=== PATIENT | female | born 1955 | race Caucasian/White ===

== ENCOUNTER → 2021-08-02 | Outpatient (CLI) | payer OTHER ==
[~2021-08-02] MED LIST: Advil200 M1 PO; Anastrozole1 GM PO; CALCAVITDA PO; CHOL10002 PO; GLUCOSAMINE-CH1 EA22 PO; LISI20 PO; LORA10 PO; LOVA40 PO; MAGCHL64ER PO; THYR60 PO
== END | disposition home or self-care (01) ==
LOC: LAB SHORT 16:18
DX: N39.0 Urinary tract infection, site not specified (principal)
CPT/HCPCS: 87077; 87086; 87186

== ENCOUNTER 2022-10-27 08:33 | Day surgery (SDC) | payer OTHER ==
[~2022-10-27] VITALS: Ht 147.3 cm; Wt 51.2 kg
== END 2022-10-27 10:50 | disposition home or self-care (01) ==
LOC: ORSCSDS 08:33
PROVIDERS: Surgery
PROC: 0DJD8ZZ Inspection of Lower Intestinal Tract, Via Natural or Artificial Opening Endoscopic (ICD-10-PCS; principal; 2022-10-27 09:45)
DX: Z12.11 Encounter for screening for malignant neoplasm of colon (principal); Z80.0 Family history of malignant neoplasm of digestive organs; Z86.010 Personal history of colon polyps; K57.30 Diverticulosis of large intestine without perforation or abscess without bleeding; I10 Essential (primary) hypertension; E78.5 Hyperlipidemia, unspecified; E03.9 Hypothyroidism, unspecified; Z85.3 Personal history of malignant neoplasm of breast; Z79.899 Other long term (current) drug therapy
CPT/HCPCS: J2704; J7120

== ENCOUNTER → 2024-05-09 | Outpatient (CLI) | payer OTHER | END | disposition home or self-care (01) | LOC: LAB SHORT 17:25 → LAB 17:25 | DX: N39.0 Urinary tract infection, site not specified (principal) | CPT/HCPCS: 87077; 87086; 87186 ==